=== PATIENT | male | born 1990 | race Caucasian/White ===

== ENCOUNTER 2017-05-16 01:22 | Observation (INO) | payer OTHER ==
[~2017-05-16] VITALS: Ht 180.3 cm; Wt 70.0 kg
[2017-05-16 01:24] VITALS: BP 166/104; PULSE 78; RESP 16; TEMP 97.8; O2SAT 98
[2017-05-16] MEDS ORDERED: ASPIRIN 81 MG CHEW TAB CHEW ONE (02:45)
[2017-05-16] MEDS ORDERED: NITROGLYCERIN 2% OINT 1 GM PACKET TOPICAL ONE (03:00)
[2017-05-16] MEDS ORDERED: SODIUM CHLORID 0.9% 500 ML INJ 500 ML IV ONE (03:00)
[2017-05-16 03:12] LABS: AUTOMATED NEUTROPHIL # 2.4 TH/MM3 (1.8-7.7); BASOPHIL # 0.1 TH/MM3 (0-0.2); BASOPHIL % 1.7 % (0.0-2.0); EOSINOPHIL % 0.8 % (0.0-4.0); HEMATOCRIT 43.2 % (39.0-51.0); HEMO FLAGS DIFF FINAL; LYMPHOCYTE # 1.6 TH/MM3 (1.0-4.8); MEAN CELL VOLUME 94.1 FL (80.0-100.0); MEAN CORPUSCULAR HEMOGLOBIN 32.2 PG (27.0-34.0); MEAN CORPUSCULAR HGB CONC 34.2 % (32.0-36.0); NEUT % 51.5 % (16.0-70.0); PLATELET COUNT 103 TH/MM3 (150-450); RED BLOOD COUNT 4.59 MIL/MM3 (4.50-5.90); RED CELL DISTRIBUTION WIDTH 13.5 % (11.6-17.2); WHITE BLOOD COUNT 4.7 TH/MM3 (4.0-11.0)
[2017-05-16 03:26] LABS: APTT (PATIENT) 30.3 SEC (24.3-30.1); INTERNATIONAL NORMALIZED RATIO 0.9 RATIO
[2017-05-16 03:31] LABS: BLOOD, URINE NEG (NEG); GLUCOSE,URINE NEG (NEG); KETONE, URINE NEG (NEG); NITRITE,URINE NEG (NEG); PH, URINE 6.5 (5.0-8.5); URINE COLOR LIGHT-YELLOW (YELLW/STRAW)
--- NOTE | 2017-05-16 03:46 | RADRPT ---
EXAM DATE/TIME: 05/16/2017 02:56 [facility] COMPARISON: No previous studies available for comparison. INDICATIONS : Chest pain. MEDICAL HISTORY : None. SURGICAL HISTORY : None. ENCOUNTER: Initial ACUITY: 1 day PAIN SCORE: 4/10 LOCATION: Bilateral chest FINDINGS: A single view of the chest demonstrates the lungs to be symmetrically aerated without evidence of mas s, infiltrate or effusion. The cardiomediastinal contours are unremarkable. Osseous structures are intact. CONCLUSION: No acute cardiopulmonary disease demonstrated. Albert Ordonez MD on May 16, 2017 at 3:44 Board Certified Radiologist. This report was verified electronically.
[2017-05-16 03:48] LABS: ALKALINE PHOSPHATASE 80 U/L (45-117); ALT (GPT) 131 U/L (12-78); ANION GAP 10 MEQ/L (5-15); AST (GOT) 126 U/L (15-37); BICARBONATE 26.2 MEQ/L (21.0-32.0); BLOOD UREA NITROGEN 5 MG/DL (7-18); CHLORIDE 103 MEQ/L (98-107); CREATINE KINASE 928 U/L (39-308); GLOMERULAR FILTRATION RATE 122 ML/MIN (>89); MAGNESIUM 2.2 MG/DL (1.5-2.5); SODIUM (NA) 139 MEQ/L (136-145); TOTAL BILIRUBIN ADULT 0.3 MG/DL (0.2-1.0)
[2017-05-16 03:50] LABS: POTASSIUM 4.1 MEQ/L (3.5-5.1)
[2017-05-16 03:55] LABS: COMMENT (UR) CULT NOT INDICATED; CULTURE IF INDICATED CULT NOT INDICATED
[2017-05-16] MEDS ORDERED: SODIUM CHLOR 0.9% 1000 ML INJ 1,000 ML IV ONE (04:00)
[2017-05-16 04:04] LABS: AMPHETAMINE, URINE NEG (NEG); BARBITURATES, URINE NEG (NEG); COCAINE, URINE NEG (NEG)
--- NOTE | 2017-05-16 04:05 | RADRPT ---
EXAM DATE/TIME: 05/16/2017 03:36 [facility] COMPARISON: No previous studies available for comparison. INDICATIONS : Left leg pain. MEDICAL HISTORY : Seizures. Tobacco and alcohol use. SURGICAL HISTORY : Right eye surgery. ENCOUNTER: Initial ACUITY: 3 weeks PAIN SCORE: 10/10 LOCATION: Left leg. TECHNIQUE: Venous ultrasound of the leg was performed from the inguinal ligament to the proximal calf. Real-laz e, color Doppler and spectral tracing, compression and augmentation techniques were used. FINDINGS: There is normal compressibility of the deep venous system from the inguinal region to the proximal ca lf. No echogenic clot is seen in the lumen of the common femoral, femoral, popliteal, and posterior tibial veins. There is a normal response of the venous system to proximal and distal augmentation an d respiration. CONCLUSION: Normal study. No DVT of the left lower extremity. Albert Ordonez MD on May 16, 2017 at 4:03 Board Certified Radiologist. This report was verified electronically.
[2017-05-16] MEDS ORDERED: IOHEXOL 350 MG/ML 10 ML VIAL (for RAD DIAG) IV ONE (04:27)
--- NOTE | 2017-05-16 04:50 | RADRPT ---
EXAM DATE/TIME: 05/16/2017 04:13 This report includes an Addendum and supersedes previous reports for this exam. [facility] COMPARISON: No previous studies available for comparison. INDICATIONS : Chest pain. IV CONTRAST: 70 cc Omnipaque 350 (iohexol) IV RADIATION DOSE: 23.59 CTDIvol (mGy) MEDICAL HISTORY : None SURGICAL HISTORY : None. ENCOUNTER: Initial ACUITY: 1 day PAIN SCALE: 5/10 LOCATION: Bilateral chest TECHNIQUE: Volumetric scanning of the chest was performed using a pulmonary embolism protocol MIP images were re constructed. Using automated exposure control and adjustment of the mA and/or kV according to patien t size, radiation dose was kept as low as reasonably achievable to obtain optimal diagnostic quality images. FINDINGS: PULMONARY ARTERIES: No filling defects are seen in the pulmonary arteries through the segmental level. LUNGS: There is no consolidation or pneumothorax . No concerning pulmonary nodule is visualized. PLEURAE: There is no pleural thickening or pleural effusion. MEDIASTINUM: There is good visualization of the great vessels of the middle mediastinum. No evidence of mediastin al or hilar adenopathy/mass. MUSCULOSKELETAL: Within normal limits for patient age. MISCELLANEOUS: 12 mm circumscribed low attenuation lesion seen in the spleen. CONCLUSION: No pulmonary embolus or other acute cardiopulmonary disease. Small cyst of the spleen. Albert Ordonez MD on May 16, 2017 at 4:48 Board Certified Radiologist. This report was verified electronically. ADDENDUM: I do get good look at the aorta through the aortic hiatus. There is no aneurysm, calcification or di ssection. There is mild prominence of the ascending aorta to 3 cm. The descending aorta measures 2 cm. There is no pericardial effusion. Jayme Jang MD FACR on May 16, 2017 at 8:59 Board Certified Radiologist. This report was verified electronically.
--- NOTE | 2017-05-16 04:59 | PD ---
HPI Chief Complaint: Pain: Acute or Chronic Time Seen by Provider: 01:55 Travel History International Travel<30 days: No Contact w/Intl Traveler<30days: No Traveled to known affect area: No History of Present Illness HPI The patient is a 27 year old male who presents to the [facility] emergency department with a history of multiple systemic complaints. The patient's first complaint is that he's been experiencing for the last 3-1/2 weeks of pain in the left calf. He reports that it began while he was sleeping with a cramp in his calf. He reports that he was able to stand and work the cramp bowel, however the next day he noticed some bruising and increased pain with a lump along the medial calf. He reports that he has a family history of blood clots. He reports that his father of a blood clot in his leg. The patient additionally reports that he's been experiencing chest pain intermittently for the last year. He reports that the chest pain is a pressure sensation associated with shortness of breath that comes and goes. He reports that today it occurred while he was at work and was associated with diaphoresis. The patient denies having a primary care physician. He denies ever being diagnosed with high blood pressure, hyperlipidemia, or diabetes mellitus. The patient does however smoke a pack of cigarettes per day and reportedly drinks 12-18 beers per day. He denies having any personal history of blood clots in his legs or in his lungs. The patient denies ever having a stress test done previously. The patient denies using any street drugs/illicit drugs. Review of systems, the patient denies any recent fevers, cough, congestion, neck pain, abdominal pain, vomiting, diarrhea, urinary symptoms, or neurologic symptoms. [facility] Past Medical History Narrative Medical The patient's past medical history is significant for a history of a heart murmur, history of seizure activity times one related to alcohol withdrawal, history of alcohol abuse, history of tobacco abuse Seizures: Yes (back in aug ) Tetanus Vaccination: Unknown Influenza Vaccination: No Past Surgical History Narrative Surgical The patient's past surgical history is significant for 2 prior eye surgeries. Social History Alcohol Use: Yes (12-18 beers per day.) Tobacco Use: Yes (one pack per day) Substance Use: No Allergies-Medications (Allergen,Severity, Reaction): Coded Allergies: Bactrim (Verified Allergy, Intermediate, 05/16/17) Penicillin (Verified Allergy, Unknown, 05/16/17) Reported Meds & Prescriptions Reported Meds & Active Scripts Active No Active Prescriptions or Reported Medications Review of Systems Except as stated in HPI: all other systems reviewed are Neg General / Constitutional: No: Fever Eyes: No: Visual changes HENT: No: Headaches Cardiovascular: Positive: Chest Pain or Discomfort, Diaphoresis Respiratory: Positive: Shortness of Breath Gastrointestinal: Positive: Nausea, No: Abdominal Pain Genitourinary: No: Dysuria Musculoskeletal: Positive: Myalgias, Pain Skin: No Rash Neurologic: No: Weakness, Focal Abnormalities, Change in Mentation, Slurred Speech, Sensory Disturbance Psychiatric: No: Depression Endocrine: No: Polydipsia Hematologic/Lymphatic: No: Easy Bruising Physical Exam Narrative General: The patient is well-developed well-nourished male in no acute distress. Head and Neck exam: Head is normocephalic atraumatic. Eyes: Evidence of strabismus on examination, pupils are equal round and reactive to light. Nose: Midline septum with pink mucous membranes Mouth: Dentition unremarkable. Moist mucus membranes. Posterior oropharynx is not erythematous. No tonsillar hypertrophy. Uvula midline. Airway patent. Neck: No palpable lymphadenopathy. No nuchal rigidity. No thyromegaly. Cardiovascular: Regular rate and rhythm without murmurs, gallops, or rubs. No pulse deficit to the extremities on simultaneous auscultation and palpation of his radial artery. Lungs: Clear to auscultation bilaterally. No wheezes, rhonchi, or rales. Abdomen: Soft, without tenderness to palpation in all 4 quadrants of the abdomen. No guarding, rebound, or rigidity. Normal bowel sounds are audible. No tenderness on palpation of McBurney's point. Negative Grimm's sign. Extremities: No clubbing, cyanosis, or edema. 2+ pulses in all 4 extremities. The patient is noted to have an area of tenderness on palpation along the medial aspect of the left calf. There is an area of ecchymosis at this site. The patient is able to toe walk and heel walk, however he has pain associated with this. Back: No costovertebral angle tenderness to palpation. Neurologic Exam: Grossly nonfocal. Skin Exam: No rash noted. Intact skin that is warm and dry. Data Data Last Documented VS Vital Signs Date Time Temp Pulse Resp B/P Pulse Ox O2 Delivery O2 Flow Rate FiO2 05/16/17 01:24 97.8 78 16 166/104 98 Orders Complete Blood Count With Diff (05/16/17 02:44) Comprehensive Metabolic Panel (05/16/17 02:44) Creatine Kinase (Cpk) (05/16/17 02:44) Ckmb (Isoenzyme) Profile (05/16/17 02:44) Troponin I (05/16/17 02:44) B-Type Natriuretic Peptide (05/16/17 02:44) Prothrombin Time / Inr (Pt) (05/16/17 02:44) Act Partial Throm Time (Ptt) (05/16/17 02:44) Lipase (05/16/17 02:44) Urinalysis - C+S If Indicated (05/16/17 02:44) D-Dimer (05/16/17 02:44) Magnesium (Mg) (05/16/17 02:44) Chest, Single Ap (05/16/17 02:44) Iv Access Insert/Monitor (05/16/17 02:44) Ecg Monitoring (05/16/17 02:44) Oximetry (05/16/17 02:44) Drug Screen, Random Urine (05/16/17 02:44) Alcohol (Ethanol) (05/16/17 02:44) Aspirin Chew (Aspirin Chew) (05/16/17 02:45) Nitroglycerin 2% Oint (Nitroglycerin 2% (05/16/17 03:00) Sodium Chlorid 0.9% 500 Ml Inj (Ns 500 M (05/16/17 03:00) Ct Pulmonary Angiogram (05/16/17 02:47) Us Leg Venous Doppler (05/16/17 02:47) CKMB (05/16/17 03:00) CKMB% (05/16/17 03:00) Sodium Chlor 0.9% 1000 Ml Inj (Ns 1000 M (05/16/17 04:00) Iohexol 350 Inj (Omnipaque 350 Inj) (05/16/17 04:27) Labs Laboratory Tests Test 05/16/17 05/16/17 03:00 03:10 White Blood Count 4.7 TH/MM3 Red Blood Count 4.59 MIL/MM3 Hemoglobin 14.8 GM/DL Hematocrit 43.2 % Mean Corpuscular Volume 94.1 FL Mean Corpuscular Hemoglobin 32.2 PG Mean Corpuscular Hemoglobin 34.2 % Concent Red Cell Distribution Width 13.5 % Platelet Count 103 TH/MM3 Mean Platelet Volume 8.7 FL Neutrophils (%) (Auto) 51.5 % Lymphocytes (%) (Auto) 34.0 % Monocytes (%) (Auto) 12.0 % Eosinophils (%) (Auto) 0.8 % Basophils (%) (Auto) 1.7 % Neutrophils # (Auto) 2.4 TH/MM3 Lymphocytes # (Auto) 1.6 TH/MM3 Monocytes # (Auto) 0.6 TH/MM3 Eosinophils # (Auto) 0.0 TH/MM3 Basophils # (Auto) 0.1 TH/MM3 CBC Comment DIFF FINAL Differential Comment Prothrombin Time 10.0 SEC Prothromb Time International 0.9 RATIO Ratio Activated Partial 30.3 SEC Thromboplast Time D-Dimer Quantitative (PE/DVT) 0.63 MG/L FEU Sodium Level 139 MEQ/L Potassium Level 4.1 MEQ/L Chloride Level 103 MEQ/L Carbon Dioxide Level 26.2 MEQ/L Anion Gap 10 MEQ/L Blood Urea Nitrogen 5 MG/DL Creatinine 0.77 MG/DL Estimat Glomerular Filtration 122 ML/MIN Rate Random Glucose 82 MG/DL Calcium Level 9.0 MG/DL Magnesium Level 2.2 MG/DL Total Bilirubin 0.3 MG/DL Aspartate Amino Transf 126 U/L (AST/SGOT) Alanine Aminotransferase 131 U/L (ALT/SGPT) Alkaline Phosphatase 80 U/L Total Creatine Kinase 928 U/L Creatine Kinase MB 6.0 NG/ML Creatine Kinase MB % 0.6 % Troponin I LESS THAN 0.02 NG/ML B-Type Natriuretic Peptide 5 PG/ML Total Protein 8.3 GM/DL Albumin 4.3 GM/DL Lipase 222 U/L Ethyl Alcohol Level 406 MG/DL Urine Color LIGHT-YELLOW Urine Turbidity CLEAR Urine pH 6.5 Urine Specific [place] 1.002 Urine Protein NEG mg/dL Urine Glucose (UA) NEG mg/dL Urine Ketones NEG mg/dL Urine Occult Blood NEG Urine Nitrite NEG Urine Bilirubin NEG Urine Urobilinogen LESS THAN 2.0 MG/DL Urine Leukocyte Esterase NEG Microscopic Urinalysis Comment CULT NOT INDICATED Urine Opiates Screen NEG Urine Barbiturates Screen NEG Urine Amphetamines Screen NEG Urine Benzodiazepines Screen NEG Urine Cocaine Screen NEG Urine Cannabinoids Screen NEG MDM Medical Decision Making Medical Screen Exam Complete: Yes Emergency Medical Condition: Yes Medical Record Reviewed: Yes Interpretation(s) Last Impressions Lower Extremity Ultrasound 05/16/17246 Signed Impressions: Service Date/Time: Tuesday, May 16, 2017 03:36 - CONCLUSION: Normal study. No DVT of the left lower extremity. Albert Ordonez MD Chest X-Ray 05/16/17243 Signed Impressions: Service Date/Time: Tuesday, May 16, 2017 02:56 - CONCLUSION: No acute cardiopulmonary disease demonstrated. Albert Ordonez MD Differential Diagnosis Pulmonary embolism, versus DVT, versus dissecting aortic aneurysm, versus contusion, versus partial tear of his calf muscle, versus esophagitis related to acid reflux Narrative Course During the course of the patients emergency department visit, the patients history, examination, and differential diagnosis were reviewed with the patient. The patient had IV access obtained and blood work sent for analysis. The patient was placed on a monitoring tech with oximetry and blood pressure monitoring. An EKG was ordered. The patient was initially provided aspirin 162 mg by mouth 1, nitroglycerin 1 inch to the chest wall, normal saline a 500 mL bolus, followed by 1 L bolus after his CPK came back elevated at 928 with a normal MB percent is 0.6. The patients laboratory studies were reviewed and remarkable for a CMP that is remarkable for a BUN of 5, AST 126, ALT 131, CPK 928, MB percent 0.6, troponin I less than 0.02, BNP 5, lipase 222, PT 10, PTT 30.3, d-dimer 0.63, urine drug screen is negative, alcohol level CDVI, urinalysis is unremarkable. Radiology studies were reviewed and remarkable for a chest x-ray that shows no acute cardiopulmonary disease, ultrasound was negative for DVT in the left lower extremity. CTA of the chest shows no evidence of pulmonary embolism, normal mediastinal blood vessels according to the radiologist. Given the patient's recurrent pain over the last year the patient will be admitted to the chest pain center for rule out serial cardiac enzyme protocol and consideration of stress testing. The patients results were discussed with the patient, including the plan of care. I explained that further testing and/ or monitoring is indicated based on the patients history, examination, and/ or laboratory findings. Therefore, I recommended admission for additional evaluation. The patient expressed understanding and was agreeable with this plan. The patient was admitted to the hospital in stable condition and sent to a bed under the care of the chest pain center. Diagnosis Primary Impression: Chest pain, rule out acute myocardial infarction Admitting Information Admitting Physician Requests: Observation Scripts No Active Prescriptions or Reported Meds Chelo Tidwell MD May 16, 2017 04:59
[2017-05-16] MEDS ORDERED: ONDANSETRON HCL 4 MG/2 ML VIAL IV PRN (06:15)
[2017-05-16] MEDS ORDERED: SODIUM CHLORIDE 0.9% FLUSH 10 ML FLUSH IV FLUSH PRN (06:15)
[2017-05-16] MEDS ORDERED: ACETAMINOPHEN 500 MG CPLT PO PRN (06:15)
[2017-05-16 07:45] VITALS: O2SAT 94
[2017-05-16 07:46] VITALS: BP 120/66; PULSE 68; RESP 20; O2SAT 94
[2017-05-16 08:00] VITALS: BP 125/70; PULSE 67; RESP 16; TEMP 97.2; O2SAT 97
[2017-05-16 08:30] LABS: CREATINE KINASE 824 U/L (39-308)
--- NOTE | 2017-05-16 08:32 | HHI.HP ---
HPI Primary Care Physician No Primary Care Physician Chief Complaint Chest pain History of Present Illness 27-year-old male presents to the emergency room for further evaluation of chest pain. Reports intermittent chest pain 3 months. Location left anterior chest. Described as a sharp pain. No radiation of pain. Occasionally his left hand and wrist will become numb during chest pain episodes. No associated symptoms. Yesterday developed left anterior chest pain. Described as "though someone was standing on my chest." Duration 10 minutes. No radiation of pain. No associated symptoms with this episode. No known precipitating or relieving factors. States he has been seen at multiple local [facility] hospitals and they are unable to determine cause of his chest discomfort. Never had formal stress testing. Review of Systems General: No fatigue,weakness, fever, chills, recent illness, or change in appetite. Endorses he drinks "too much alcohol." HEENT: No BRANDON, no vision changes, no nasal congestion or drainage, no dysphasia. States "I think all of my problems are because my teeth are bad." CV: As stated above. No current chest pain or pressure. No palpitations, intermittent leg pain, or dizziness. States when he is active he feels his best. When he is still he feels fatigued and "not right." These feelings have occurred for many months. RESP: No SOB, cough, wheeze, recent URI, or history of asthma GI: No nausea, vomiting, bowel changes, diarrhea, constipation, pain, distention , melena, blood in the stool. No unintentional weight gain or weight loss. : No dysuria, urgency, frequency EXT: No lower leg edema, no paraesthesias MS: No discomfort or change in ROM NEURO: No difficulty with balance, LOC, motor/sensory deficits PSYCH: No anxiety, depression, suicidal ideation. Endorses alcohol abuse and attended Alcoholics Anonymous in the past. Endorses remote drug use quitting 7 years ago. SKIN: No rashes, no concerning lesions Past Family Social History Allergies: Coded Allergies: Bactrim (Verified Allergy, Intermediate, 05/16/17) Penicillin (Verified Allergy, Unknown, 05/16/17) Past Medical History None Past Surgical History None Reported Medications Active No Active Prescriptions or Reported Medications Active Ordered Medications Current Medications Medications (Trade) Dose Ordered Sig/Eduardo Route Start Time Stop Time Status Last Admin (Tylenol) 500 mg Q4H PRN PO 05/16/17 06:15 (Zofran Inj) 4 mg Q6H PRN IV 05/16/17 06:15 Family History Noncontributory for early onset cardiovascular disease. Social History No known diabetes, hyperlipidemia, or hypertension. Smokes one pack/daily. Endorses "at least 10 beers daily." Remote drug use denies any current illegal drug use. Works as a plant protection guard. Past cardiac testing None Physical Exam Vital Signs Vital Signs Date Time Temp Pulse Resp B/P Pulse Ox O2 Delivery O2 Flow Rate FiO2 05/16/17 07:46 68 20 120/66 94 Room Air 05/16/17 07:45 94 Room Air 05/16/17 01:24 97.8 78 16 166/104 98 Physical Exam GENERAL: Alert WN, WD, NAD, pleasant, tall, thin, male HEAD: NC, AT EYES: Sclera clear, conjunctiva without injection, pupils equal and round ENT: Mucous membranes pink and moist NECK: Supple, no masses, trachea midline CV: RRR, 2/6 diasystolic murmur, No rub, gallop, JVD, S1-S2 no S3-S4. RESP: Clear lungs throughout bilateral, no crackles, wheeze, rhonchi, symmetrical chest rise, nonlabored, able to speak in full sentences ABD: Soft, NT, ND, no masses, positive bowel tones BACK: No CVAT, no scoliosis EXT: Pulses +24, no dependent edema MS: Normal tone 4 extremities, nontender, no obvious deformities, full range of motion NEURO: CN II through CN XII grossly intact, motor strength 5/5, gait WNL PSYCH: A+O 3, pleasant affect, appropriate speech, appropriate mood and affect , insight and judgment SKIN: Normal turgor, normal texture, no lesions, no rashes, brisk cap refill, even hair distribution Laboratory Laboratory Tests Test 05/16/17 05/16/17 05/16/17 03:00 03:10 07:30 White Blood Count 4.7 Red Blood Count 4.59 Hemoglobin 14.8 Hematocrit 43.2 Mean Corpuscular Volume 94.1 Mean Corpuscular Hemoglobin 32.2 Mean Corpuscular Hemoglobin 34.2 Concent Red Cell Distribution Width 13.5 Platelet Count 103 Mean Platelet Volume 8.7 Neutrophils (%) (Auto) 51.5 Lymphocytes (%) (Auto) 34.0 Monocytes (%) (Auto) 12.0 Eosinophils (%) (Auto) 0.8 Basophils (%) (Auto) 1.7 Neutrophils # (Auto) 2.4 Lymphocytes # (Auto) 1.6 Monocytes # (Auto) 0.6 Eosinophils # (Auto) 0.0 Basophils # (Auto) 0.1 CBC Comment DIFF FINAL Differential Comment Prothrombin Time 10.0 Prothromb Time International 0.9 Ratio Activated Partial 30.3 Thromboplast Time D-Dimer Quantitative (PE/DVT) 0.63 Sodium Level 139 Potassium Level 4.1 Chloride Level 103 Carbon Dioxide Level 26.2 Anion Gap 10 Blood Urea Nitrogen 5 Creatinine 0.77 Estimat Glomerular Filtration 122 Rate Random Glucose 82 Calcium Level 9.0 Magnesium Level 2.2 Total Bilirubin 0.3 Aspartate Amino Transf 126 (AST/SGOT) Alanine Aminotransferase 131 (ALT/SGPT) Alkaline Phosphatase 80 Total Creatine Kinase 928 824 Creatine Kinase MB 6.0 Creatine Kinase MB % 0.6 Troponin I LESS THAN 0.02 LESS THAN 0.02 B-Type Natriuretic Peptide 5 Total Protein 8.3 Albumin 4.3 Lipase 222 Ethyl Alcohol Level 406 Urine Color LIGHT-YELLOW Urine Turbidity CLEAR Urine pH 6.5 Urine Specific [place] 1.002 Urine Protein NEG Urine Glucose (UA) NEG Urine Ketones NEG Urine Occult Blood NEG Urine Nitrite NEG Urine Bilirubin NEG Urine Urobilinogen LESS THAN 2.0 Urine Leukocyte Esterase NEG Microscopic Urinalysis Comment CULT NOT INDICATED Urine Opiates Screen NEG Urine Barbiturates Screen NEG Urine Amphetamines Screen NEG Urine Benzodiazepines Screen NEG Urine Cocaine Screen NEG Urine Cannabinoids Screen NEG Result Diagram: 05/16/17 0300 05/16/17299 Imaging Last Impressions Lower Extremity Ultrasound 05/16/17246 Signed Impressions: Service Date/Time: Tuesday, May 16, 2017 03:36 - CONCLUSION: Normal study. No DVT of the left lower extremity. Albert Ordonez MD CT Angiography 05/16/17246 Signed Impressions: Service Date/Time: Tuesday, May 16, 2017 04:13 - CONCLUSION: No pulmonary embolus or other acute cardiopulmonary disease. Small cyst of the spleen. Albert Ordonez MD ADDENDUM: I do get good look at the aorta through the aortic hiatus. There is no aneurysm, calcification or dissection. There is mild prominence of the ascending aorta to 3 cm. The descending aorta measures 2 cm. There is no pericardial effusion. Jayme Jang MD FACR Chest X-Ray 05/16/17 0244 Signed Impressions: Service Date/Time: Tuesday, May 16, 2017 02:56 - CONCLUSION: No acute cardiopulmonary disease demonstrated. Albert Ordonez MD Course EKGs Normal sinus rhythm, normal axis, no ST or T-segment changes Assessment and Plan Assessment and Plan #1 Chest painadmitted chest pain center. Ruled out with 3 sets of EKGs, cardiac enzymes, and monitor overnight. Seen and evaluated by Dr. Obi Peralta. [facility] protocol stress test completed was unremarkable. Will be later discharged this morning. Reassurance provided. #2 Alcohol abusestrongly encouraged and stressed the importance of alcohol cessation especially. Encouraged him to contact [facility] or alcoholic [employer] to assist him. #3 Tobacco use-counseled on risk of smoking. Encouraged him to quit smoking. #4 Aortic valve insufficiency-educated him and his mother importance of establishing with a PCP and lifelong follow-up regarding aortic valve insufficiency. He has been strongly encouraged to establish with a primary care provider and information given on free clinics in the area. #5 Elevated liver enzymes-discussed in length most likely due to long-standing alcohol abuse. Discussed risks of alcohol abuse including, but not limited to, esophageal varices, liver cirrhosis, and gastrointestinal bleeding. Spending approximately 20 minutes discussing importance of alcohol cessation with both patient and his mother. Strongly encouraged to be his own advocate in regards to alcohol cessation and to be his own healthcare surrogate. Encouraged calling local free clinics or [id number] offices in his area. Kathya Winston May 16, 2017 08:32
[2017-05-16 08:42] LABS: CKMB 5.1 NG/ML (0.5-3.6)
[2017-05-16 08:52] VITALS: PULSE 65
[2017-05-16] MEDS ORDERED: SODIUM CHLORIDE 0.9% FLUSH 10 ML FLUSH IV FLUSH SCH (09:00)
[2017-05-16 10:04] LABS: CREATINE KINASE 714 U/L (39-308)
--- NOTE | 2017-05-16 11:14 | HHI.DCPOC ---
Discharge Care Plan Diagnosis: (1) Atypical chest pain (2) Aortic valve insufficiency (3) Elevated liver enzymes (4) Tobacco abuse (5) Alcohol use Goals to Promote Your Health * To prevent worsening of your condition and complications * To maintain your health at the optimal level Directions to Meet Your Goals Take your medications as prescribed Follow your dietary instruction Follow activity as directed Keep your appointments as scheduled Take your immunizations and boosters as scheduled If your symptoms worsen call your PCP, if no PCP go to Urgent Care Center or Emergency Room Smoking is Dangerous to Your Health. Avoid second hand smoke Call the 24-hour hour crisis hotline for domestic abuse at Kathya Winston May 16, 2017 11:14
[2017-05-16 12:00] VITALS: BP 138/66; PULSE 75; RESP 16; TEMP 97.1; O2SAT 100
--- NOTE | 2017-05-16 12:22 | EKG ---
Date Performed: 05/16/2017 Time Performed: 07:28:07 PTAGE: 27 years EKG: SINUS BRADYCARDIA BORDERLINE ECG NO PREVIOUS TRACING DOCTOR: Jamie Arreola Interpretating Date/Time 05/16/2017 12:21:07
--- NOTE | 2017-05-16 13:56 | TR ---
Date Performed: 05/16/2017 Time Performed: 10:30:18 DOCTOR: Obi Peralta DRUG LIST: CLINICAL HISTORY: CHEST PAIN REASON FOR TEST: REASON FOR ENDING: OBSERVATION: CONCLUSION: Arias protocol completed. Stopped sec to exceeding target heart rate and leg fatigue . Maximum NU=984 Target HR Achieved=89.0% Resting ZG=436/98 Total Exercise Time=8:01. No reprod chest pain. No ectopy. No st t segment changes to sugg ischemia. Good exercise tolerance. Normal bp respon se. Recovery quick and unremarkable. COMMENTS: Patient exercised using the Arias protocol. No electrocardiographic changes were seen to suggest ischemia. Hemodynamic response to exercise was normal. No significant arrhythmia was prese nt.
--- NOTE | 2017-05-16 13:56 | EKG ---
Date Performed: 05/16/2017 Time Performed: 09:11:19 PTAGE: 27 years EKG: Sinus rhythm WITH SINUS ARRHYTHMIA INDETERMINATE AXIS BORDERLINE ECG NO PREVIOUS TRACING DOCTOR: Obi Peralta Interpretating Date/Time 05/16/2017 13:55:08
== END 2017-05-16 13:19 | disposition home or self-care (01) ==
LOC: NEPE 01:22 → NEDA 06:01 → NEPGCP 08:14
PROVIDERS: ADMIT Internal Medicine Interventional Cardiology; ATTEND Internal Medicine Interventional Cardiology
DX: R07.89 Other chest pain (principal); I35.1 Nonrheumatic aortic (valve) insufficiency; R74.8 Abnormal levels of other serum enzymes; F17.210 Nicotine dependence, cigarettes, uncomplicated; F10.10 Alcohol abuse, uncomplicated; Z88.1 Allergy status to other antibiotic agents; Z88.0 Allergy status to penicillin; Y90.8 Blood alcohol level of 240 mg/100 ml or more
CPT/HCPCS: 71010; 71275; 80053; 80307; 81001; 82550; 82552; 83690; 83735; 83880; 84484; 85025; 85379; 85610; 85730; 93005; 93017; 93971; 96365; 96366; 99285; G0378; J7030; J7040; Q9967